=== PATIENT | male | born 1945 | race Caucasian/White ===

== ENCOUNTER 2017-01-01 14:59 | Inpatient (IN) | payer OTHER ==
[~2017-01-01] VITALS: Ht 170.2 cm; Wt 68.7 kg
[2017-01-01 16:04] LABS: HEMATOCRIT 34.5 % (38.0-50.0); MCH 32.8 PG (29.0-34.0); MCHC 35.7 G/DL (30.0-36.0); MEAN PLAT.VOLUME 8.4 uM^3 (9.0-12.4); PLATELET COUNT 135 K/uL (156-360); RBC DIS.WIDTH-CV 11.7 % (11.8-14.6); RBC DIS.WIDTH-SD 39.8 % (39-53); RED BLOOD COUNT 3.75 M/uL (4.00-5.50); WHITE BLOOD COUNT 5.1 K/uL (4.1-10.2)
[2017-01-01 16:13] LABS: CHLORIDE 93 mEq/L (99-109); POTASSIUM 3.9 mEq/L (3.7-5.4); SODIUM 124 mEq/L (136-147)
[2017-01-01 16:15] LABS: GLUCOSE 95 mg/dL (70-99)
[2017-01-01 16:16] LABS: ANION GAP 10 MEQ/L (2-14)
[2017-01-01 16:18] LABS: GFR ESTIMATE (CALCULATED) > 59 mL/min/; SERUM ETHYL ALCOHOL 220 mg/dL
[2017-01-01 16:19] LABS: UREA NITROGEN (BUN) 4 mg/dL (9-23)
[2017-01-01 21:10] LABS: MAGNESIUM 1.6 mg/dL (1.3-2.7)
[2017-01-01 22:41] VITALS: BP 168/93
[2017-01-02 08:17] LABS: ANION GAP 17 MEQ/L (2-14); CHLORIDE 91 MEQ/L (99-109); GFR ESTIMATE (CALCULATED) > 59 mL/min/; GLUCOSE 71 mg/dL (70-99); POTASSIUM 3.7 MEQ/L (3.7-5.4); SAMPLE HEMOLYSIS CHECK 0; SAMPLE ICTERIC CHECK 0; SAMPLE LIPEMIA CHECK 0; SODIUM 125 MEQ/L (136-147); UREA NITROGEN (BUN) 6 mg/dL (9-23)
[2017-01-02 09:49] LABS: MAGNESIUM 1.4 mg/dl (1.3-2.7)
[2017-01-02 11:17] VITALS: BP 165/90
[2017-01-02 11:18] VITALS: BP 162/84; BP 165/90
[2017-01-02 12:14] LABS: AMPHETAMINES QUANT VALUE 0 NG/ML; BARBITUATES QUANT VALUE 0 NG/ML; BENZODIAZEPINES QUANT VALUE 0 NG/ML; BENZODIAZEPINES, URINE SCREEN Negative (200 ng/mL); MARIJUANA QUANT VALUE 0 NG/ML; OPIATES QUANTITATIVE VALUE 0 NG/ML; PHENCYCLIDINE QUANT VALUE 0 NG/ML
[2017-01-02 15:23] VITALS: BP 141/66
[2017-01-02 15:33] LABS: ALKALINE PHOSPHATASE 90 IU/L (3-129); ANION GAP 9 MEQ/L (2-14); CHLORIDE 91 MEQ/L (99-109); GFR ESTIMATE (CALCULATED) > 59 mL/min/; POTASSIUM 3.4 MEQ/L (3.7-5.4); SAMPLE HEMOLYSIS CHECK 0; SAMPLE ICTERIC CHECK 0; SAMPLE LIPEMIA CHECK 0; SODIUM 124 MEQ/L (136-147); TOTAL BILIRUBIN 1.5 MG/DL (0.0-1.0); UREA NITROGEN (BUN) 7 mg/dL (9-23)
[2017-01-02 15:40] LABS: GLUCOSE 105 mg/dL (70-99)
[2017-01-02 19:35] VITALS: BP 145/83
[2017-01-02 20:35] LABS: ANION GAP 8 MEQ/L (2-14); CHLORIDE 94 MEQ/L (99-109); GFR ESTIMATE (CALCULATED) > 59 mL/min/; GLUCOSE 157 mg/dL (70-99); POTASSIUM 3.4 MEQ/L (3.7-5.4); SAMPLE HEMOLYSIS CHECK 0; SAMPLE ICTERIC CHECK 0; SAMPLE LIPEMIA CHECK 0; SODIUM 126 MEQ/L (136-147); UREA NITROGEN (BUN) 7 mg/dL (9-23)
[2017-01-02 23:50] VITALS: BP 144/80
[2017-01-03 03:21] VITALS: BP 138/79
[2017-01-03 06:54] LABS: HEMATOCRIT 38.5 % (38.0-50.0); MCH 33.4 PG (29.0-34.0); MCHC 36.1 G/DL (30.0-36.0); MCV 92.5 FL (86-99); MEAN PLAT.VOLUME 9.5 uM^3 (9.0-12.4); PLATELET COUNT 132 K/uL (156-360); RBC DIS.WIDTH-CV 11.8 % (11.8-14.6); RBC DIS.WIDTH-SD 40.6 % (39-53); RED BLOOD COUNT 4.16 M/uL (4.00-5.50)
[2017-01-03 07:00] VITALS: BP 126/91
[2017-01-03 07:21] LABS: ANION GAP 10 MEQ/L (2-14); CHLORIDE 97 MEQ/L (99-109); GFR ESTIMATE (CALCULATED) > 59 mL/min/; GLUCOSE 161 mg/dL (70-99); POTASSIUM 3.4 MEQ/L (3.7-5.4); SAMPLE HEMOLYSIS CHECK 0; SAMPLE ICTERIC CHECK 0; SAMPLE LIPEMIA CHECK 0; SODIUM 132 MEQ/L (136-147); UREA NITROGEN (BUN) 7 mg/dL (9-23)
[2017-01-03 11:47] VITALS: BP 180/99
[2017-01-03 15:07] VITALS: BP 147/67
[2017-01-03 20:12] VITALS: BP 153/80
[2017-01-03 23:49] VITALS: BP 157/78
[2017-01-04] VITALS (7 sets, daily range): BP systolic 88–132; BP diastolic 53–73
[2017-01-04 06:04] LABS: HEMATOCRIT 37.9 % (38.0-50.0); MCH 32.8 PG (29.0-34.0); MCHC 35.1 G/DL (30.0-36.0); MCV 93.6 FL (86-99); MEAN PLAT.VOLUME 9.6 uM^3 (9.0-12.4); PLATELET COUNT 148 K/uL (156-360); RBC DIS.WIDTH-CV 11.8 % (11.8-14.6); RED BLOOD COUNT 4.05 M/uL (4.00-5.50); WHITE BLOOD COUNT 4.2 K/uL (4.1-10.2)
[2017-01-04 06:07] LABS: ALKALINE PHOSPHATASE 76 IU/L (3-129); ANION GAP 7 MEQ/L (2-14); CHLORIDE 94 MEQ/L (99-109); GFR ESTIMATE (CALCULATED) > 59 mL/min/; GLUCOSE 155 mg/dL (70-99); POTASSIUM 3.4 MEQ/L (3.7-5.4); PREALBUMIN 12.4 mg/dL (10-40); SAMPLE HEMOLYSIS CHECK 0; SAMPLE ICTERIC CHECK 0; SAMPLE LIPEMIA CHECK 0; SODIUM 130 MEQ/L (136-147); UREA NITROGEN (BUN) 10 mg/dL (9-23)
[2017-01-04 06:09] LABS: INTER. NORMALIZED RATIO 1.1; PROTHROMBIN TIME 11.4 (9.2-11.2); PTT 29.2 (25-32)
[2017-01-04 06:40] LABS: TOTAL BILIRUBIN 0.8 MG/DL (0.0-1.0)
[2017-01-04 08:06] LABS: Estimated Average Glucose 97 mg/dL (70-123)
[2017-01-05] VITALS: BP 122/75
[2017-01-05 04:00] VITALS: BP 158/81
[2017-01-05 06:18] LABS: ANION GAP 6 MEQ/L (2-14); CHLORIDE 96 MEQ/L (99-109); GFR ESTIMATE (CALCULATED) > 59 mL/min/; GLUCOSE 137 mg/dL (70-99); POTASSIUM 3.7 MEQ/L (3.7-5.4); SAMPLE HEMOLYSIS CHECK 0; SAMPLE ICTERIC CHECK 0; SAMPLE LIPEMIA CHECK 0; SODIUM 131 MEQ/L (136-147); UREA NITROGEN (BUN) 17 mg/dL (9-23)
[2017-01-05 07:49] VITALS: BP 157/85
[2017-01-05 11:23] VITALS: BP 118/61
[2017-01-05] MEDS ORDERED: DECADRON4 MG PO (12:30)
[2017-01-05] MEDS ORDERED: Colchicine,Colcrys PO (12:30)
[2017-01-05] MEDS ORDERED: CEPHALEXIN500 MG PO (12:30)
[2017-01-05] MEDS ORDERED: AMLODIPINE BESYL5 MG PO (12:30)
== END 2017-01-05 15:42 | DRG 641 ==
LOC: EME 14:59 → 5SOUTH 19:51 → EDOF 19:51 → 5SOUTH 22:10
PROVIDERS: Emergency Medicine; Internal Medicine; Nurse Practitioner Adult Health; Surgery
DX: E87.1 Hypo-osmolality and hyponatremia (principal); F10.229 Alcohol dependence with intoxication, unspecified; S01.81XA Laceration without foreign body of other part of head, initial encounter; S40.812A Abrasion of left upper arm, initial encounter; M10.9 Gout, unspecified; E46 Unspecified protein-calorie malnutrition; M79.671 Pain in right foot; M48.02 Spinal stenosis, cervical region; W19.XXXA Unspecified fall, initial encounter; Y93.01 Activity, walking, marching and hiking; S01.01XA Laceration without foreign body of scalp, initial encounter; F17.200 Nicotine dependence, unspecified, uncomplicated; E87.6 Hypokalemia; I73.9 Peripheral vascular disease, unspecified; E86.0 Dehydration; M19.071 Primary osteoarthritis, right ankle and foot; F10.239 Alcohol dependence with withdrawal, unspecified; G31.9 Degenerative disease of nervous system, unspecified; M81.0 Age-related osteoporosis without current pathological fracture; W18.30XA Fall on same level, unspecified, initial encounter; M20.10 Hallux valgus (acquired), unspecified foot; M47.812 Spondylosis without myelopathy or radiculopathy, cervical region; E04.1 Nontoxic single thyroid nodule; D72.819 Decreased white blood cell count, unspecified
CPT/HCPCS: 70450; 70551; 72125; 72156; 73630; 80048; 80048 91; 80053; 80306 90; 82436; 82607; 83036; 83735; 83930; 83935; 84100; 84133; 84134; 84300; 84425 90; 84443; 85027; 85610; 85730; 97530 GP; 99281; 99285; G0480; J1100; J1650; J3411; J7030; J7042

== ENCOUNTER → 2017-02-19 | Outpatient (CLI) | payer OTHER ==
[~2017-02-19] MED LIST: AMLODIPINE BESYL5 MG PO; CEPHALEXIN500 MG PO; Colchicine,Colcrys PO; DECADRON4 MG PO
== END ==
LOC: RAD 13:16
DX: M50.30 Other cervical disc degeneration, unspecified cervical region (principal); M47.892 Other spondylosis, cervical region
CPT/HCPCS: 72040

== ENCOUNTER → 2017-04-02 | Outpatient (CLI) | payer OTHER | LOC: MRI 10:31 → RAD 11:00 → MRI 11:00 | DX: M48.02 Spinal stenosis, cervical region (principal); R93.7 Abnormal findings on diagnostic imaging of other parts of musculoskeletal system | CPT/HCPCS: 72156 ==